=== PATIENT | male | born 1960 | race Caucasian/White ===

== ENCOUNTER 2020-08-18 13:24 | Emergency (ER) | payer SELFPAY ==
[2020-08-18] MEDS ORDERED: ACETAMINOPHEN 325 MG TABLET PO STA (13:55)
--- NOTE | 2020-08-18 14:29 | XRAY Report ---
PROCEDURE: Elbow 2 View LT INDICATIONS: swelling pain TECHNIQUE: 2 views of the elbow were acquired. COMPARISON: None FINDINGS: Bones: No fractures or dislocations. No suspicious bony lesions. Soft tissues: No elbow joint effusion, but there is soft tissue swelling at the olecranon bursa damien cating site of maximal tenderness. No suspicious soft tissue calcifications. IMPRESSION: Both soft tissue swelling and a bursal effusion at the olecranon bursa site could produce the soft ti ssue prominence in that area. No fracture. Reviewed by: Rowdy Lovell MD on 08/18/2020 2:28 PM PST Approved by: Rowdy Lovell MD on 08/18/2020 2:28 PM PST Station ID: [id number]
--- NOTE | 2020-08-18 15:30 | ED Physician Documentation ---
History of Present Illness - Stated complaint Stated Complaint: LFT ELBOW SWOLLEN - Chief complaint Chief Complaint: Heent - History obtained from History obtained from: Patient - Additonal information Additional information: 60-year-old man presents with left elbow swelling over the past few days, progressively worsening associated with minimal pain that is nonradiating not worse with range of motion. Denies fevers, traumatic injury, rash, redness, prior history of bursitis. Review of Systems Constitutional: denies: Fever, Chills Skin: reports: Other (swelling at elbow) Musculoskeletal: reports: Extremity pain PD PAST MEDICAL HISTORY - Past Medical History Past Medical History: Yes Cardiovascular: None Respiratory: None Neuro: None Endocrine/Autoimmune: None GI: None : None HEENT: None Psych: None Musculoskeletal: None Derm: None - Past Surgical History Past Surgical History: Yes Ortho: Spine surgery - Present Medications Home Medications: Ambulatory Orders Medication Instructions Recorded Confirmed No Known Home Medications 08/18/20 08/18/20 - Allergies Allergies/Adverse Reactions: Allergies Allergy/AdvReac Type Severity Reaction Status Date / Time No Known Drug Allergies Allergy Verified 08/18/20 13:28 - Social History Does the pt smoke?: Yes Smoking Status: Current some day smoker Does the pt drink ETOH?: No Does the pt have substance abuse?: No - Immunizations Immunizations are current?: No Immunizations: TDAP >10years/unknown - POLST Patient has POLST: No PD ED PE NORMAL - Vitals Vital signs reviewed: Yes - General General: Alert and oriented X 3, No acute distress, Well developed/nourished - HEENT HEENT: Atraumatic, PERRL, EOMI - Extremities Extremities: No deformity, Normal ROM s pain, Other (L olecrenon bursa swelling. minimally tender. 2+ BL radial pulses, sensation, movement) - Neuro Neuro: Alert and oriented X 3 Results - Vitals Vitals: Vital Signs - 24 hr 08/18/20 13:28 Temperature 36.1 C L Heart Rate 85 Respiratory 16 Rate Blood Pressure 158/111 H O2 Saturation 98 Oxygen O2 Source Room air PD MEDICAL DECISION MAKING - ED course ED course: 60-year-old man presents with atraumatic olecranon bursitis that appears noninfectious. Patient will follow up with orthopedics. Will place splint. Strict return precautions given. Departure - Departure Disposition: 01 Home, Self Care Clinical Impression: Olecranon bursitis of left elbow Condition: Good Instructions: ED Bursitis Follow-Up: Mj Galvez MD [Provider Admit Priv/Credential] - Comments: You were seen in the emergency department for olecranon bursitis. Take ibuprofen 600 mg every 6 hours as needed for pain with food. Wear your splint until you follow-up with orthopedics in 1 week. Return to emergency department if you have new or worsening symptoms, have fevers, or noticed any redness.
[2020-08-18 15:41] VITALS: BP 148/89
== END 2020-08-18 15:41 | disposition home or self-care (01) ==
LOC: ED 13:24
DX: M70.22 Olecranon bursitis, left elbow (principal); F17.200 Nicotine dependence, unspecified, uncomplicated
CPT/HCPCS: 73070; 99283; A9270